=== PATIENT | male | born 1990 | race Caucasian/White ===

== ENCOUNTER 2024-12-25 17:59 | Emergency (ER) | payer OTHER, BC ==
[~2024-12-25] VITALS: Ht 177.8 cm; Wt 133.8 kg
[~2024-12-25 17:59] MED LIST: AUGMENTIN 875 M1 TAB PO; BENADRYL50 MG PO; MEDROL DOSEPAK4 MG PO; MOTRIN800 MG PO; PREDNISONE10 MG PO; ZYRTEC10 MG PO
[2024-12-25] MEDS ORDERED: NAPROSYN500 MG PO (19:18)
[2024-12-25] MEDS ORDERED: AMOX-CLAV 875-1 EACH PO (19:18)
[2024-12-25] MEDS ORDERED: Acetaminophen/Hydrocodone HP 10/325 PO ONE (19:20)
[2024-12-25] MEDS ORDERED: Amoxicillin/Clavulanate Pota 875 MG TAB PO ONE (19:20)
== END 2024-12-25 19:34 | disposition home or self-care (01) ==
LOC: ED 17:59
DX: K04.7 Periapical abscess without sinus (principal)